=== PATIENT | male | born 1960 | race Caucasian/White ===

== ENCOUNTER 2024-12-01 15:41 | Inpatient (IN) | payer OTHER ==
[~2024-12-01] VITALS: Ht 177.8 cm; Wt 95.5 kg
[2024-12-01 17:09] LABS: APPEARANCE,URINE CLEAR (CLEAR); GLUCOSE, URINE (UA) NEGATIVE (NEGATIVE); LEUKOCYTE ESTERASE ,URINE NEGATIVE (NEGATIVE); NITRATE,URINE NEGATIVE (NEGATIVE); OCCULT BLOOD,URINE LARGE (NEGATIVE); PH,URINE DRUG SCREEN 6.5 (5.0-8.0); SPECIFIC GRAVITIY, URINE 1.014 (1.003-1.030)
[2024-12-01 17:16] LABS: ALCOHOL, URINE DRUG SCREEN NEGATIVE (NEGATIVE); AMPHET/METH SCREEN,URINE NEGATIVE (NEGATIVE); BARBITURATE SCREEN, URINE NEGATIVE (NEGATIVE); CANNABINOID SCREEN,URINE NEGATIVE (NEGATIVE); COCAINE SCREEN,URINE NEGATIVE (NEGATIVE); METHADONE SCREEN, URINE POSITIVE (NEGATIVE); PLATELET COUNT (AUTO) 143 K/uL (150-450); RED BLOOD CELL COUNT(AUTO) 3.07 MIL/uL (4.50-5.90); RED CELL DISTRIBUTION WIDTH 18.2 % (11.5-14.5); WHITE BLOOD COUNT (AUTO) 2.9 K/uL (4.5-11.0)
[2024-12-01 17:20] LABS: CALCIUM, TOTAL 8.2 mg/dL (8.8-10.5); CREATININE 1.88 mg/dL (0.60-1.30); GLOMERULAR FILTR. RATE CALC 36 mL/min (>60); GLUCOSE,RANDOM 110 mg/dL (70-110); SODIUM SERUM 137 mmol/L (136-145); UREA NITROGEN, BLOOD 25 mg/dL (7-18)
[2024-12-01 17:21] LABS: SULFOSALICYLIC ACID,URINE 1+ (Negative)
[2024-12-01 17:22] LABS: SQUAMOUS EPITHELIAL CELL,UR Rare /LPF (None Seen); YEAST,URINE Few /HPF (None Seen)
[2024-12-01 17:28] LABS: LACTIC ACID 0.7 mmol/L (0.4-2.0)
[2024-12-01 17:35] LABS: % IRON SATURATION 9.5 % (30-44); IRON, SERUM 21 mcg/dL (50-175)
[2024-12-01 17:40] LABS: TROPONIN I-HIGH SENSITIVITY 6 ng/L (<76)
[2024-12-01] MEDS ORDERED: DEXTROSE 50%-WATER 25 GM/50 ML SYRINGE IVP PRN (19:00)
[2024-12-01] MEDS ORDERED: ACETAMINOPHEN 325 MG TABLET PO PRN (19:00)
[2024-12-01] MEDS ORDERED: ZOLPIDEM TARTRATE 5 MG TABLET PO PRN (19:00)
[2024-12-01] MEDS ORDERED: INSULIN LISPRO 100 UNITS/ML SQ PRN (19:00)
[2024-12-01] MEDS: DOCUSATE SODIUM 100 MG CAPSULE PO SCH (20:16)
[2024-12-01] MEDS: METHADONE HCL 10 MG TABLET PO SCH (20:34)
[2024-12-01 22:07] VITALS: BP 150/85; PULSE 73; RESP 14; TEMP 98.5; O2SAT 100
[2024-12-02] MEDS ORDERED: FAMOTIDINE 20 MG TABLET PO SCH (09:00)
== END 2024-12-01 22:53 | disposition left against medical advice (07) | DRG 812 ==
LOC: EMS 15:41 → EDH 18:48 → UNDOADMIN 18:48 → CMPBEDREQ 19:07 → EMS 22:38 → UNDODISIN 22:54
PROVIDERS: ADMIT Internal Medicine; ATTEND Internal Medicine
DX: D64.9 Anemia, unspecified (principal); R31.9 Hematuria, unspecified; E11.22 Type 2 diabetes mellitus with diabetic chronic kidney disease; I12.9 Hypertensive chronic kidney disease with stage 1 through stage 4 chronic kidney disease, or unspecified chronic kidney disease; N18.30 Chronic kidney disease, stage 3 unspecified; N40.0 Benign prostatic hyperplasia without lower urinary tract symptoms; Z96.659 Presence of unspecified artificial knee joint; Z53.29 Procedure and treatment not carried out because of patient's decision for other reasons; Z83.3 Family history of diabetes mellitus; Z88.5 Allergy status to narcotic agent; Z90.79 Acquired absence of other genital organ(s)
CPT/HCPCS: 71045; 76770; 80048; 80307; 81001; 81002; 83540; 83550; 83605; 83690; 84484; 85025; 85045; 85610; 86850; 86900; 86901; 87040; 93971; 99285; G0378; 36415-L1; 36415-TC